=== PATIENT | male | born 1970 | race Caucasian/White ===

== ENCOUNTER 2017-11-20 08:14 | Day surgery (SDC) | payer OTHER ==
[~2017-11-20 08:14] MED LIST: SOD CHLORIDE 0.9% 1,000 ML IV
[2017-11-20] MEDS ORDERED: MIDAZOLAM 1 MG/ML 2 ML INJ (08:45)
[2017-11-20] MEDS ORDERED: ROCURONIUM 50 MG INJ (08:46)
[2017-11-20] MEDS ORDERED: LIDOCAINE 2% (SDV) 5 ML INJ (08:46)
[2017-11-20] MEDS ORDERED: PROPOFOL 20 ML (08:46)
[2017-11-20] MEDS ORDERED: HYDROmorphONE (0.2 MG/ML) 10ML SYG IV (09:00)
[2017-11-20] MEDS ORDERED: BUPIVACAINE 0.5% (SDV) 30 ML INJ (09:15)
[2017-11-20] MEDS ORDERED: ROPIVACAINE 0.2% 20 ML VIAL (09:29)
[2017-11-20] MEDS ORDERED: DEXAMETHASONE 4 MG/ML 1 ML INJ ×2 (09:30→09:46)
[2017-11-20] MEDS: CEFAZOLIN 2 GM/50 ML (PMX) 50 ML IVPB (09:40)
[2017-11-20] MEDS ORDERED: CEFAZOLIN 1 GM INJ (09:42)
[2017-11-20] MEDS ORDERED: ONDANSETRON 4 MG INJ (09:46)
[2017-11-20] MEDS ORDERED: FAMOTIDINE 20 MG INJ (09:46)
[2017-11-20] MEDS: BUPIVACAINE 0.25% (MPF) 30 ML INJ (09:53)
[2017-11-20] MEDS: POLYMYXIN/BACITRACIN 1L IRRIG (10:00)
[2017-11-20] MEDS ORDERED: ACETAMINOPHEN 1000MG/100ML IV 100 ML (10:07)
[2017-11-20] MEDS ORDERED: SUGAMMADEX SODIUM 200 MG/2 ML VIAL IV (10:35)
[2017-11-20] MEDS ORDERED: KETOROLAC 30 MG INJ (10:35)
[2017-11-20] MEDS: HYDROmorphONE (0.2 MG/ML) 10ML SYG IV ×2 (11:30→11:40)
[2017-11-20] MEDS ORDERED: HYDROCODONE/APAP (5/325) TAB PO (11:30)
[2017-11-20] MEDS ORDERED: KETOROLAC 30 MG INJ IV (11:30)
[2017-11-20] MEDS ORDERED: IBUPROFEN 600 MG TAB PO (11:30)
[2017-11-20] MEDS ORDERED: morphine LIQ (10 MG/5 ML) CUP PO (11:30)
[2017-11-20] MEDS: ONDANSETRON 4 MG INJ IV (11:40)
[2017-11-20] MEDS: HYDROCODONE/APAP (5/325) TAB PO (14:07)
== END 2017-11-20 14:25 | disposition home or self-care (01) ==
LOC: SDS 08:14
DX: K40.90 Unilateral inguinal hernia, without obstruction or gangrene, not specified as recurrent (principal)
CPT/HCPCS: 49505